=== PATIENT | female | born 1965 | race Caucasian/White ===

== ENCOUNTER 2022-04-04 20:45 | Emergency (ER) | payer OTHER ==
[2022-04-04] MEDS ORDERED: Diphtheria,Pertussis(Acell),Tetanus Vaccine 0.5 ML Syringe IM ONE (20:50)
[2022-04-04] MEDS ORDERED: Lidocaine 1% 5 ML VIAL INJECT ONE (20:50)
== END 2022-04-04 21:30 | disposition home or self-care (01) ==
LOC: JP.ED 20:45
DX: S60.450A Superficial foreign body of right index finger, initial encounter (principal); Z23 Encounter for immunization; W45.8XXA Other foreign body or object entering through skin, initial encounter
CPT/HCPCS: 90471; 90715; 99281; 99283-25